=== PATIENT | female | born 1950 | race Caucasian/White ===

== ENCOUNTER → 2024-03-11 | Outpatient (CLI) | payer OTHER ==
[~2024-03-11] MED LIST: ASPI325 PO; Cipro500 MG PO; FARXIGA10 MG PO; GLYB5 PO; HYDR1TAB94 PO; INSLI100I SC; INSULANPEN SC; LISHYD1012 PO; Pyridium200 MG PO; VICODIN 5-3001 EACH PO; Zofran Odt4 MG SL
[2024-03-11 19:15] LABS: Bun/Creatinine Ratio 9.1 (12.0-20.0); Calcium, Blood 7.7 mg/dL (8.5-10.1); Creatinine, Blood 0.66 mg/dL (0.40-1.00); Potassium, Blood 4.3 mmol/L (3.5-5.5)
== END ==
LOC: LAB SHORT 17:27 → LAB 17:27
PROVIDERS: Nurse Practitioner Family
DX: R60.9 Edema, unspecified (principal)
CPT/HCPCS: 80048

== ENCOUNTER → 2024-09-07 | Outpatient (CLI) | payer OTHER ==
[2024-09-07 18:56] LABS: BASOPHILS ABSOLUTE AUTO 0.06 K/mm3 (0.00-0.23); BASOPHILS PERCENT AUTO 1 % (0-2); EOSINOPHILS ABSOLUTE AUTO 0.28 K/mm3 (0.00-0.68); EOSINOPHILS PERCENT AUTO 3 % (0-6); Hematocrit 26.7 % (33.0-51.0); Hemoglobin 9.3 g/dL (11.5-16.0); IMMATURE GRAN ABSOLUTE AUTO 0.05 K/mm3 (0.00-0.10); IMMATURE GRAN PERCENT AUTO 1 % (0-1); LYMPHOCYTES ABSOLUTE AUTO 2.66 K/mm3 (0.84-5.20); LYMPHOCYTES PERCENT AUTO 29 % (21-46); MONOCYTES ABSOLUTE AUTO 0.88 K/mm3 (0.16-1.47); MONOCYTES PERCENT AUTO 10 % (4-13); Mean Corpuscular HGB 32.2 pg (26.0-34.0); Mean Corpuscular HGB Conc 34.8 g/dL (31.5-36.5); Mean Corpuscular Volume 92 fL (80-100); Mean Platelet Volume 10.7 fL (9.1-12.4); NEUTROPHILS ABSOLUTE AUTO 5.29 K/mm3 (1.96-9.15); NEUTROPHILS PERCENT AUTO 57 % (41-73); Platelet Count 152 K/mm3 (150-400); RDW Coefficient Variation 15.3 % (11.7-14.2); RDW Standard Deviation 52.3 fL (35.1-46.3); Red Blood Cell Count 2.89 M/mm3 (3.80-5.20); White Blood Cell Count 9.22 K/mm3 (4.00-11.30)
[2024-09-07 20:19] LABS: Albumin, Blood 1.9 g/dL (3.4-5.0); Albumin/Globulin Ratio 0.4 (0.8-1.8); Bilirubin, Total 1.7 mg/dL (0.1-1.0); Bun/Creatinine Ratio 16.3 (12.0-20.0); Calcium, Blood 8.2 mg/dL (8.5-10.1); Creatinine, Blood 0.8 mg/dL (0.40-1.00); Globulin, Blood 4.4 g/dL (2.2-4.0); Potassium, Blood 3.5 mmol/L (3.5-5.5); Total Protein, Blood 6.3 g/dL (6.4-8.2)
== END ==
LOC: LAB 17:08 → LAB SHORT 17:08
PROVIDERS: Nurse Practitioner Family
DX: J06.9 Acute upper respiratory infection, unspecified (principal)
CPT/HCPCS: 80053; 85025

== ENCOUNTER 2024-09-15 10:40 | Emergency (ER) | payer OTHER ==
[~2024-09-15] VITALS: Ht 162.6 cm; Wt 96.6 kg
[2024-09-15 11:13] VITALS: BP 171/77
[2024-09-15 11:23] LABS: BASOPHILS ABSOLUTE AUTO 0.05 K/mm3 (0.00-0.23); BASOPHILS PERCENT AUTO 1 % (0-2); EOSINOPHILS ABSOLUTE AUTO 0.13 K/mm3 (0.00-0.68); EOSINOPHILS PERCENT AUTO 2 % (0-6); Hematocrit 26.8 % (33.0-51.0); Hemoglobin 9.2 g/dL (11.5-16.0); IMMATURE GRAN ABSOLUTE AUTO 0.02 K/mm3 (0.00-0.10); IMMATURE GRAN PERCENT AUTO 0 % (0-1); LYMPHOCYTES ABSOLUTE AUTO 1.48 K/mm3 (0.84-5.20); LYMPHOCYTES PERCENT AUTO 21 % (21-46); MONOCYTES ABSOLUTE AUTO 0.68 K/mm3 (0.16-1.47); MONOCYTES PERCENT AUTO 10 % (4-13); Mean Corpuscular HGB 32.4 pg (26.0-34.0); Mean Corpuscular HGB Conc 34.3 g/dL (31.5-36.5); Mean Corpuscular Volume 94 fL (80-100); Mean Platelet Volume 9.2 fL (9.1-12.4); NEUTROPHILS ABSOLUTE AUTO 4.78 K/mm3 (1.96-9.15); NEUTROPHILS PERCENT AUTO 67 % (41-73); Platelet Count 154 K/mm3 (150-400); RDW Coefficient Variation 15.9 % (11.7-14.2); RDW Standard Deviation 54.4 fL (35.1-46.3); Red Blood Cell Count 2.84 M/mm3 (3.80-5.20); White Blood Cell Count 7.14 K/mm3 (4.00-11.30)
[2024-09-15 11:41] LABS: Albumin/Globulin Ratio 0.4 (0.8-1.8); Bilirubin, Total 1.5 mg/dL (0.1-1.0); Bun/Creatinine Ratio 11.1 (12.0-20.0); Calcium, Blood 8.1 mg/dL (8.5-10.1); Creatinine, Blood 0.72 mg/dL (0.40-1.00); Globulin, Blood 4.9 g/dL (2.2-4.0); Potassium, Blood 3.8 mmol/L (3.5-5.5); Total Protein, Blood 6.9 g/dL (6.4-8.2)
[2024-09-15] MEDS ORDERED: Furosemide 10 MG/ML 10ML Vial IV ONE (15:50)
== END 2024-09-15 16:34 | disposition home or self-care (01) ==
LOC: ER 10:40
PROVIDERS: Student in an Organized Health Care Education/Training Program
DX: R60.0 Localized edema (principal); E11.9 Type 2 diabetes mellitus without complications; Z87.891 Personal history of nicotine dependence; Z79.4 Long term (current) use of insulin; Z79.899 Other long term (current) drug therapy; Z88.5 Allergy status to narcotic agent; Z91.040 Latex allergy status
CPT/HCPCS: 71046; 80053; 83735; 83880; 84484; 85025; 93005; 93010; 96374; 99284-25; J1940

== ENCOUNTER → 2024-10-14 | Outpatient (CLI) | payer OTHER ==
[2024-10-14 10:59] LABS: BASOPHILS ABSOLUTE AUTO 0.05 K/mm3 (0.00-0.23); BASOPHILS PERCENT AUTO 1 % (0-2); EOSINOPHILS ABSOLUTE AUTO 0.15 K/mm3 (0.00-0.68); EOSINOPHILS PERCENT AUTO 3 % (0-6); Hemoglobin 8.8 g/dL (11.5-16.0); IMMATURE GRAN ABSOLUTE AUTO 0.01 K/mm3 (0.00-0.10); IMMATURE GRAN PERCENT AUTO 0 % (0-1); LYMPHOCYTES ABSOLUTE AUTO 1.45 K/mm3 (0.84-5.20); LYMPHOCYTES PERCENT AUTO 27 % (21-46); MONOCYTES ABSOLUTE AUTO 0.55 K/mm3 (0.16-1.47); MONOCYTES PERCENT AUTO 10 % (4-13); Mean Corpuscular HGB 32.7 pg (26.0-34.0); Mean Corpuscular HGB Conc 35.2 g/dL (31.5-36.5); Mean Corpuscular Volume 93 fL (80-100); NEUTROPHILS ABSOLUTE AUTO 3.14 K/mm3 (1.96-9.15); NEUTROPHILS PERCENT AUTO 59 % (41-73); Platelet Count 147 K/mm3 (150-400); RDW Coefficient Variation 14.8 % (11.7-14.2); RDW Standard Deviation 50.7 fL (35.1-46.3); Red Blood Cell Count 2.69 M/mm3 (3.80-5.20); White Blood Cell Count 5.35 K/mm3 (4.00-11.30)
[2024-10-14 11:07] LABS: International Normalized Ratio 1.29; Prothrombin Time Results 13.5 Sec (9.7-11.5)
== END | disposition home or self-care (01) ==
LOC: LAB 10:40 → LAB SHORT 10:40
PROVIDERS: Nurse Practitioner Family
DX: R04.0 Epistaxis (principal); R94.6 Abnormal results of thyroid function studies
CPT/HCPCS: 84439; 85025; 85610

== ENCOUNTER 2025-01-16 08:38 | Emergency (ER) | payer OTHER ==
[~2025-01-16] VITALS: Ht 162.6 cm; Wt 86.2 kg
[2025-01-16] MEDS ORDERED: FentaNYL Citrate 50 MCG/ML 2 ML Injection IV ONE (09:40)
[2025-01-16] MEDS ORDERED: NS 1,000 ML IV SCH (09:40)
[2025-01-16] MEDS ORDERED: HYDROmorphone HCl/Pf 1MG SYR IV ONE ×2 (11:45→12:35)
[2025-01-16] MEDS ORDERED: Ondansetron HCl 2 MG / ML 2ML Vial IV ONE (11:45)
[2025-01-16] MEDS ORDERED: HYDR1TAB94 PO (13:31)
[2025-01-16] MEDS ORDERED: ONDA4ODT MM (13:31)
[2025-01-16 13:43] VITALS: BP 126/52
== END 2025-01-16 14:08 | disposition home or self-care (01) ==
LOC: ER 08:38
DX: S42.292A Other displaced fracture of upper end of left humerus, initial encounter for closed fracture (principal); Z79.899 Other long term (current) drug therapy; Z79.4 Long term (current) use of insulin; Z88.5 Allergy status to narcotic agent; Z91.040 Latex allergy status; E11.9 Type 2 diabetes mellitus without complications; Z87.891 Personal history of nicotine dependence; W18.30XA Fall on same level, unspecified, initial encounter
CPT/HCPCS: 73020; 73030; 96374; 96375; 96376; 99284-25; J1171; J2405; J3010; J7030

== ENCOUNTER 2025-01-24 23:49 | Emergency (ER) | payer OTHER ==
[~2025-01-24] VITALS: Ht 157.5 cm; Wt 79.4 kg
[~2025-01-24 23:49] MED LIST changes: +ONDA4ODT MM
[2025-01-25] MEDS ORDERED: Tranexamic Acid 100 ML IV ONE (00:10)
[2025-01-25 00:11] LABS: BASOPHILS ABSOLUTE AUTO 0.07 K/mm3 (0.00-0.23); BASOPHILS PERCENT AUTO 1 % (0-2); EOSINOPHILS ABSOLUTE AUTO 0.28 K/mm3 (0.00-0.68); EOSINOPHILS PERCENT AUTO 3 % (0-6); Hematocrit 19.8 % (33.0-51.0); Hemoglobin 6.7 g/dL (11.5-16.0); IMMATURE GRAN ABSOLUTE AUTO 0.03 K/mm3 (0.00-0.10); IMMATURE GRAN PERCENT AUTO 0 % (0-1); LYMPHOCYTES PERCENT AUTO 23 % (21-46); MONOCYTES ABSOLUTE AUTO 0.86 K/mm3 (0.16-1.47); MONOCYTES PERCENT AUTO 10 % (4-13); Mean Corpuscular HGB 32.1 pg (26.0-34.0); Mean Corpuscular HGB Conc 33.8 g/dL (31.5-36.5); Mean Corpuscular Volume 95 fL (80-100); NEUTROPHILS ABSOLUTE AUTO 5.72 K/mm3 (1.96-9.15); NEUTROPHILS PERCENT AUTO 63 % (41-73); Platelet Count 164 K/mm3 (150-400); RDW Coefficient Variation 16.8 % (11.7-14.2); RDW Standard Deviation 57.8 fL (35.1-46.3); Red Blood Cell Count 2.09 M/mm3 (3.80-5.20); White Blood Cell Count 9.06 K/mm3 (4.00-11.30)
[2025-01-25] MEDS ORDERED: NS 1,000 ML IV ONE ×2 (00:26→02:58)
[2025-01-25 00:28] LABS: International Normalized Ratio 1.22; Prothrombin Time Results 12.9 Sec (9.7-11.5)
[2025-01-25 00:31] LABS: Albumin, Blood 1.8 g/dL (3.4-5.0); Albumin/Globulin Ratio 0.4 (0.8-1.8); Bilirubin, Total 1.8 mg/dL (0.1-1.0); Bun/Creatinine Ratio 21.3 (12.0-20.0); Calcium, Blood 7.6 mg/dL (8.5-10.1); Creatinine, Blood 1.08 mg/dL (0.40-1.00); Potassium, Blood 4.5 mmol/L (3.5-5.5); Total Protein, Blood 5.8 g/dL (6.4-8.2)
[2025-01-25 01:13] LABS: Source, Urine Clean Catch
[2025-01-25 01:17] LABS: Bilirubin, Urine Neg (Neg); Blood, Urine 3+ (Neg); Glucose Qualitative, Urine Neg (Neg); Ketones, Urine Neg (Neg); Leukocyte Esterase, Urine 1+ (Neg); Nitrite, Urine Neg (Neg); Protein, Urine Neg (Neg); Urobilinogen, Urine 2+ (Normal)
[2025-01-25 01:30] LABS: Color, Urine Yellow (P-Yellow)
[2025-01-25 01:31] LABS: Amorphous Light (0-Heavy); Appearance, Urine Clear (Clear); Bacteria Few /hpf; Red Blood Cells, Urine 0-2 /hpf (0-2); Squamous Epithelial Cells Not Seen /hpf (Few)
[2025-01-25] MEDS ORDERED: Pantoprazole Sodium 40 MG in NS 50 ML IV SCH (01:50)
[2025-01-25] MEDS ORDERED: Octreotide Acetate 500 MCG in NS 250 ML IV SCH (01:50)
[2025-01-25] MEDS ORDERED: Octreotide Acetate 50 MCG in NS 50 ML IV ONE (01:50)
[2025-01-25] MEDS ORDERED: CefTRIAXone Sodium 1,000 MG in NS 100 ML IV ONE (01:50)
[2025-01-25] MEDS ORDERED: Pantoprazole Sodium 40 MG Injection IV ONE (01:50)
[2025-01-25] MEDS ORDERED: Ondansetron HCl 2 MG / ML 2ML Vial IV ONE (02:30)
[2025-01-25 02:59] LABS: Hematocrit 20.7 % (33.0-51.0); Hemoglobin 7.3 g/dL (11.5-16.0)
[2025-01-25 04:30] VITALS: BP 137/58
== END 2025-01-25 06:00 | disposition short-term general hospital (02) ==
LOC: ER 23:49
PROVIDERS: Emergency Medicine
DX: K94.01 Colostomy hemorrhage (principal); Y83.8 Other surgical procedures as the cause of abnormal reaction of the patient, or of later complication, without mention of misadventure at the time of the procedure; E11.9 Type 2 diabetes mellitus without complications; Z88.5 Allergy status to narcotic agent; Z91.040 Latex allergy status; Z79.82 Long term (current) use of aspirin; Z79.4 Long term (current) use of insulin; Z79.899 Other long term (current) drug therapy; Z87.891 Personal history of nicotine dependence
CPT/HCPCS: 36430; 51702; 74174; 80053; 81001; 83690; 83735; 85014; 85018; 85025; 85610; 85730; 86850; 86900; 86901; 86920; 93005; 93010; 96365; 96366; 96368; 96375; 96376; 99291-25; J0696; J2354; J2405; J2470; J7030; J7040; J7050; P9016; Q9967